=== PATIENT | male | born 1975 | race Caucasian/White ===

== ENCOUNTER → 2021-02-19 17:01 | Outpatient (CLI) | payer BC, SELFPAY | PROVIDERS: Visit Provider Nurse Practitioner | DX: Z20.822 Contact with and (suspected) exposure to COVID-19 (principal) | CPT/HCPCS: C9803; U0003; U0005 ==

== ENCOUNTER 2021-06-17 18:15 | Emergency (ER) | payer BC, SELFPAY ==
[2021-06-17 18:16] VITALS: BP 150/86; PULSE 75; RESP 16; TEMP 37; O2SAT 98; BMI 36.2
--- NOTE | 2021-06-17 18:34 | HMH.EDEYEP ---
ED Disposition Clinical Impression: Corneal abrasion Qualifiers: Encounter type: initial encounter Laterality: left Qualified Code(s): S05.02XA - Injury of conjunctiva and corneal abrasion without foreign body, left eye, initial encounter Disposition: Home, Self-Care Condition on Discharge: Good Instructions: DI for Corneal Abrasion Referrals: Alirio Mckinney MD [Primary Care Provider] - Dandre,Av House MD [Referring] - - Critical Care Critical Care Time: No Attestation: On 06/17/21, the high probability of a clinically significant, sudden or life threatening deterioration of the following system(s) required my full and direct attention, intervention and personal management. The time I documented below is in addition to time spent performing reported procedures but includes the following listed in this critical care notation. Medical Decision Making - Medical Records Medical records reviewed: Yes: I reviewed the patient's medical records. - Buddy Inquiry Pt receiving controlled substance: No Vital Signs: 06/17/21 18:16 Temperature 98.6 F Temperature Source Oral Pulse Rate [Right] 75 Respiratory Rate 16 Blood Pressure [Right Arm] 150/86 H Blood Pressure Mean [Right Arm] 107 Blood Pressure Source [Right Arm] Automatic Cuff Blood Pressure Position [Right Arm] Sitting 02 Sat by Pulse Oximetry 98 Oxygen Delivery Method Room Air Medical Decision Narrative: 45-year-old male presented to the emergency department with some left eye irritation. The patient had thorough eye examination with topical tetracaine. There is evidence of a small corneal abrasion. There is no foreign body in the eye or underneath the lids. Patient's tetanus is up-to-date. We did irrigate the eye. I placed topical antibiotic. He is to follow-up with ophthalmology. Given strict return precautions. Verbalized understanding. Eye Problem HPI - General Chief complaint: Eye Problems Stated complaint: foreign object in left eye Time Seen by Provider: 06/17/21 18:20 Mode of Arrival: Ambulatory Limitations: No Limitations Description of Symptoms (Recalled from ER Triage Doc. by RN): Pt left eye is red with drainage. PT also reports FB sensation in the upper part of the eye and advises it has been draining with blurred vision and light sensitivity - History of Present Illness HPI Narrative: Is a 45-year-old male presenting with some left discomfort. Patient states that he has had this since earlier this morning. 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 He has been very irritated since then. Has had some clear drainage from the area. He has not had any significant change in vision, just very irritated. It is sensitive to light as well. Patient does not wear contacts. Denies any headache or change in vision. No focal weakness. No abdominal pain or vomiting. No fevers or chills. - Related Data Previous Rx's Medication Instructions Recorded Naproxen [Naprosyn 500mg tablet] 500 mg PO BID PRN #20 tab 09/24/17 methylPREDNISolone [Medrol] 4 mg PO DIRECTED #1 tab.ds.pk 09/28/17 Allergies Allergy/AdvReac Type Severity Reaction Status Date / Time No Known Allergies Allergy Verified 09/29/17 12:54 [facility] History - Hepatitis A Screen Attestation statement:: This patient has been screened for Hepatitis A risk factors. I have reviewed the patient's past medical history: Yes Medical History: Reports:: Kidney Stones Denies:: Cancer, Diabetes Mellitus Type 1, Diabetes Mellitus Type 2, MRSA Laterality Cases: Left: Arthroscopy Knee Amputation: No Fractures: No - Social History Smoking Status: Current every day smoker Tobacco Type: cigarettes # Packs/Day (cigarettes): 1 Alcohol Intake: current Alcohol Intake Frequency:: holidays/special occasions only Substance Use Type: denies use Family Hx:: Hyperlipidemia, Heart Attack ROS Obtained: Yes All systems reviewed & no additional complaints
[2021-06-17 18:45] VITALS: BP 150/70; PULSE 84; RESP 16; TEMP 36.8; O2SAT 98
== END 2021-06-17 18:46 | disposition home or self-care (01) ==
PROVIDERS: Emergency Provider Emergency Medicine; PCP Emergency Medicine
DX: S05.02XA Injury of conjunctiva and corneal abrasion without foreign body, left eye, initial encounter (principal); F17.210 Nicotine dependence, cigarettes, uncomplicated
CPT/HCPCS: 99283

== ENCOUNTER 2024-12-23 10:46 | Outpatient (CLI) | payer BC, SELFPAY ==
[2024-12-23 19:10] LABS: Hematocrit 48.3 % (42.0-52.0); Hemoglobin 15.8 g/dL (14.1-18.0); Immature Granulocytes % 0.2 %; Mean Corpuscular HGB Conc 32.7 g/dL (31.8-35.4); Mean Corpuscular Hemoglobin 29.0 pg (27.0-31.2); Mean Corpuscular Volume 88.6 fl (80-94); Nucleated Red Blood Cells % 0 %; Platelet Count 155 K/mm3 (142-424); Red Blood Count 5.45 M/mm3 (4.60-6.20); Red Cell Distribution Width-SD 39.4 fL; White Blood Count 10.0 K/mm3 (4.8-10.8)
[2024-12-23 19:21] LABS: Alanine Aminotransferase 46 U/L (12-78); Albumin Level 4.1 g/dl (3.5-5.0); Albumin/Globulin Ratio 1.2 (1.1-1.8); Alkaline Phosphatase 109 U/L (38-126); Anion Gap 10.9 mEq/L (5-15); Aspartate Amino Transferase 37 U/L (17-59); Bilirubin,Total 0.6 mg/dl (0.2-1.3); Blood Urea Nitrogen 10 mg/dl (9-20); Calcium 9.5 mg/dl (8.4-10.2); Carbon Dioxide 25 mmol/L (22.0-30.0); Chloride 102 mmol/L (98-107); Cholesterol 157 mg/dl (140-200); Creatinine,Serum 0.70 mg/dl (0.66-1.25); Estimated Glomerular Filt Rate 120 ml/min (>60); GFR (African American) 145 ML/MIN (>60); Globulin 3.3 g/dL (1.3-3.2); Glucose 195 mg/dl (74-100); HDL Cholesterol 23 mg/dl (40-60); Potassium 3.9 mmoL/L (3.5-5.1); Sodium 134 mmol/L (136-145); Total Protein,Serum 7.4 g/dl (6.3-8.2); Triglycerides 406 mg/dl (30-150)
[2024-12-23 19:55] LABS: Prostate Specific Ag, Diagnost 0.616 ng/ml (0.0-4.0); Thyroid Stimulating Hormone 1.04 uIU/mL (0.465-4.68)
== END 2024-12-23 23:59 ==
LOC: LAB.DROPOF 12-26 10:46
PROVIDERS: PCP Family Medicine; Visit Provider Family Medicine
DX: E11.9 Type 2 diabetes mellitus without complications (principal)
CPT/HCPCS: 80053; 80061; 82043; 82570; 84153; 84443; 85025